=== PATIENT | female | born 1945 | race Caucasian/White ===

== ENCOUNTER 2021-02-14 09:38 | Observation (INO) ==
[2021-02-14] MEDS ORDERED: Aspirin 81 MG TAB.CHEW PO ONE (09:51)
[2021-02-14 10:18] LABS: White Blood Count 7.8 K/mcL (4.3-11.1)
[2021-02-14 10:19] LABS: Basophils % 0.3 %; Eosinophils # 0.1 K/mcL (0.0-0.6); Eosinophils % 1.3 %; Hematocrit 37.9 % (35.3-44.9); Hemoglobin 12.8 g/dL (11.5-15.4); Immature Granulocytes % 0.5 % (0-4); Lymphocytes # 1.4 K/mcL (0.6-4.6); Lymphocytes % 17.4 %; Mean Corpuscular HGB Conc 33.8 g/dL (31.6-35.5); Mean Corpuscular Hemoglobin 30.6 pg (28.0-33.3); Mean Corpuscular Volume 90.7 fL (83.0-100.0); Monocytes # 0.8 K/mcL (0.0-1.3); Monocytes % 10.7 %; Neutrophils # 5.4 K/mcL (1.6-8.9); Platelet Count 270 K/mcL (140-400); Red Blood Count 4.18 M/mcL (3.82-4.97); Red Cell Distribution Width 13.2 % (11.5-14.5); Segmented Neutrophils % 69.8 %
[2021-02-14 10:26] LABS: INR 4.1
[2021-02-14 10:30] LABS: D-Dimer < 215 ng/mLFEU (0-500)
[2021-02-14 10:37] LABS: BUN/Creatinine Ratio 18 (6-26); Blood Urea Nitrogen 15 mg/dL (8-23); Calcium 9.4 mg/dL (8.6-10.3); Carbon Dioxide 23 mEq/L (23-29); Chloride 101 mEq/L (98-107); Glucose 109 mg/dL (70-105); Osmolality,Calculated 281 (280-300); Potassium 3.6 mEq/L (3.5-5.1); Sodium 135 mEq/L (136-145); Troponin I < 0.03 ng/mL (< 0.04); eGFR For African Americans > 60 (> 60); eGFR For Non-African Americans > 60 (> 60)
[2021-02-14] MEDS ORDERED: Ondansetron 4 MG/2 ML VIAL IVP PRN (12:09)
[2021-02-14] MEDS ORDERED: Naloxone 0.4 MG/ML INJ IVP PRN (12:09)
[2021-02-14] MEDS ORDERED: Perflutren Lipid Microsphere 1.3 ML in 0.9 % Sodium Chloride 8.7 ML IVP PRN (14:52)
[2021-02-14] MEDS: Pantoprazole 40 MG VIAL IVP SCH (16:58)
[2021-02-14] MEDS ORDERED: Warfarin perPT PO PRN (18:00)
[2021-02-14] MEDS: Acetaminophen 325 MG TABLET PO PRN (19:23)
[2021-02-15 01:45] LABS: Basophils % 0.8 %; Eosinophils # 0.1 K/mcL (0.0-0.6); Eosinophils % 2.5 %; Hematocrit 35.1 % (35.3-44.9); Hemoglobin 11.9 g/dL (11.5-15.4); Immature Granulocytes % 0.2 % (0-4); Lymphocytes # 1.7 K/mcL (0.6-4.6); Lymphocytes % 35.3 %; Mean Corpuscular HGB Conc 33.9 g/dL (31.6-35.5); Mean Corpuscular Hemoglobin 30.8 pg (28.0-33.3); Mean Corpuscular Volume 90.9 fL (83.0-100.0); Monocytes # 0.6 K/mcL (0.0-1.3); Monocytes % 12.7 %; Neutrophils # 2.4 K/mcL (1.6-8.9); Platelet Count 265 K/mcL (140-400); Red Blood Count 3.86 M/mcL (3.82-4.97); Red Cell Distribution Width 13.1 % (11.5-14.5); Segmented Neutrophils % 48.5 %; White Blood Count 4.9 K/mcL (4.3-11.1)
[2021-02-15 01:59] LABS: INR 4.4; Prothrombin Time 48.5 Seconds (9.4-12.1)
[2021-02-15 02:07] LABS: BUN/Creatinine Ratio 19 (6-26); Blood Urea Nitrogen 15 mg/dL (8-23); Carbon Dioxide 24 mEq/L (23-29); Chloride 102 mEq/L (98-107); Glucose 105 mg/dL (70-105); Magnesium 1.8 mg/dL (1.6-2.6); Osmolality,Calculated 285 (280-300); Potassium 3.4 mEq/L (3.5-5.1); Sodium 137 mEq/L (136-145); eGFR For African Americans > 60 (> 60); eGFR For Non-African Americans > 60 (> 60)
[2021-02-15] MEDS: Acetaminophen 325 MG TABLET PO PRN (02:47)
[2021-02-15] MEDS ORDERED: Regadenoson 0.4 MG/5 ML SYRINGE IVP ONE (06:07)
[2021-02-15] MEDS: Pantoprazole 40 MG VIAL IVP SCH (08:25)
[2021-02-15 12:02] VITALS: BP 139/83; PULSE 90; TEMP 98.1; O2SAT 91
[2021-02-15] MEDS ORDERED: Loratadine 10 MG TABLET PO SCH (21:00)
== END 2021-02-15 14:19 | disposition home or self-care (01) ==
LOC: EMEROOARM 09:38 → 3BNU 09:38 → SUATTDRO 15:15 → 3BNU 15:51
PROVIDERS: ADMIT Pharmacist; ATTEND Registered Nurse

== ENCOUNTER 2021-04-15 12:15 | Inpatient (IN) ==
[2021-04-15 12:50] LABS: Basophils % 0.5 %; Eosinophils # 0.2 K/mcL (0.0-0.6); Eosinophils % 1.9 %; Hematocrit 37.9 % (35.3-44.9); Hemoglobin 12.5 g/dL (11.5-15.4); Immature Granulocytes % 0.3 % (0-4); Lymphocytes # 2.1 K/mcL (0.6-4.6); Lymphocytes % 26.2 %; Mean Corpuscular Hemoglobin 30.9 pg (28.0-33.3); Mean Corpuscular Volume 93.8 fL (83.0-100.0); Mean Platelet Volume 9.2 fL (9.4-12.4); Monocytes # 0.7 K/mcL (0.0-1.3); Platelet Count 318 K/mcL (140-400); Red Blood Count 4.04 M/mcL (3.82-4.97); Red Cell Distribution Width 13.2 % (11.5-14.5); Segmented Neutrophils % 62.1 %
[2021-04-15 12:56] LABS: INR 1.8; Prothrombin Time 19.7 Seconds (9.4-12.1)
[2021-04-15 13:21] LABS: BUN/Creatinine Ratio 26 (6-26); Blood Urea Nitrogen 22 mg/dL (8-23); Calcium 9.3 mg/dL (8.6-10.3); Carbon Dioxide 26 mEq/L (23-29); Chloride 100 mEq/L (98-107); Glucose 111 mg/dL (70-105); Lipase 106 Units/L (11-82); Osmolality,Calculated 286 (280-300); Potassium 3.4 mEq/L (3.5-5.1); Sodium 136 mEq/L (136-145); Troponin I < 0.03 ng/mL (< 0.04); eGFR For African Americans > 60 (> 60); eGFR For Non-African Americans > 60 (> 60)
[2021-04-15 13:57] LABS: Bacteria,Urine Few per hpf (None-Few); Bilirubin,Urine Negative (Negative); Blood,Urine Negative (Negative); Clarity,Urine Turbid (Clear); Color,Urine Yellow (Yellow); Glucose,Urine (UA) Normal (Normal); Hyaline Casts,Urine Few per lpf (None Seen); Ketones,Urine Negative (Negative); Leukocyte Esterase,Urine Large (Negative); Mucus,Urine Few per lpf (None-Few); Nitrite,Urine Positive (Negative); PH,Urine 6.5 pH Units (5.0-8.0); Protein,Urine Trace mg/dL (Neg-Trace); Renal Epithelial Cells,Urine Few per hpf (None-Few); Specific Gravity,Urine 1.021 (1.010-1.025); Squamous Epithelial Cell,Urine Moderate per hpf (None-Few); Transitional Epi Cells,Urine Few per hpf (None-Few); Urobilinogen,Urine Normal (Normal); WBC,Urine TNTC per hpf (0-3)
[2021-04-15] MEDS ORDERED: cefTRIAXone 1,000 MG in 0.9 % Sodium Chloride Mini Bag 100 ML IVPB ONE (16:05)
[2021-04-15] MEDS ORDERED: Aspirin 325 MG TABLET PO ONE (16:36)
[2021-04-15] MEDS ORDERED: Naloxone 0.4 MG/ML INJ IVP PRN (18:21)
[2021-04-15] MEDS ORDERED: *HR* Heparin 5,000 UNIT/ML VIAL IVP PRN ×2 (18:27)
[2021-04-15 19:19] LABS: Hemoglobin 11.8 g/dL (11.5-15.4); Mean Corpuscular HGB Conc 32.8 g/dL (31.6-35.5); Mean Corpuscular Hemoglobin 30.9 pg (28.0-33.3); Mean Corpuscular Volume 94.2 fL (83.0-100.0); Mean Platelet Volume 9.3 fL (9.4-12.4); Platelet Count 282 K/mcL (140-400); Red Blood Count 3.82 M/mcL (3.82-4.97); Red Cell Distribution Width 13.1 % (11.5-14.5); White Blood Count 6.4 K/mcL (4.3-11.1)
[2021-04-15 19:26] LABS: INR 1.8; Prothrombin Time 19.9 Seconds (9.4-12.1)
[2021-04-15 19:29] LABS: Heparin anti-factor XA UFH < 0.04 IU/mL (0.30-0.70)
[2021-04-15] MEDS: Heparin 25,000 UNIT/250 ML 25,000 UNIT/250 ML IV.SOLN IVC SCH (20:06)
[2021-04-15 22:36] LABS: Adenovirus F 40/41 PCR Not detected (Not detect); Astrovirus PCR Not detected (Not detect); C.difficile Toxin A/B Gene PCR Not detected (Not detect); Campylobacter by PCR Not detected (Not detect); Cryptosporidium by PCR Not detected (Not detect); Cyclospora cayetanensis PCR Not detected (Not detect); E. coli O157 by PCR Not detected (Not detect); Entamoeba histolytica PCR Not detected (Not detect); Enteroaggregative E.coli(EAEC) Not detected (Not detect); Enteropathogenic E.coli(EPEC) Not detected (Not detect); Enterotoxigenic E.coli (ETEC) Not detected (Not detect); Giardia lamblia PCR Not detected (Not detect); Norovirus GI/GII PCR Not detected (Not detect); Plesiomonas shigelloides PCR Not detected (Not detect); Rotavirus A PCR Not detected (Not detect); Salmonella PCR Not detected (Not detect); Sapovirus PCR Not detected (Not detect); Shig/EnteroinvasiveE coli EIEC Not detected (Not detect); Shigalike tox-prod E coli STEC Not detected (Not detect); Vibrio PCR Not detected (Not detect); Vibrio cholerae PCR Not detected (Not detect); Yersinia enterocolitica PCR Not detected (Not detect)
[2021-04-16 00:46] LABS: Basophils # 0.1 K/mcL (0.0-0.2); Basophils % 0.6 %; Eosinophils # 0.1 K/mcL (0.0-0.6); Eosinophils % 1.5 %; Hematocrit 34.1 % (35.3-44.9); Hemoglobin 11.7 g/dL (11.5-15.4); Immature Granulocytes % 0.3 % (0-4); Lymphocytes # 2.3 K/mcL (0.6-4.6); Lymphocytes % 28.7 %; Mean Corpuscular HGB Conc 34.3 g/dL (31.6-35.5); Mean Corpuscular Hemoglobin 32.1 pg (28.0-33.3); Mean Corpuscular Volume 93.4 fL (83.0-100.0); Mean Platelet Volume 9.4 fL (9.4-12.4); Monocytes # 0.7 K/mcL (0.0-1.3); Monocytes % 9.3 %; Neutrophils # 4.7 K/mcL (1.6-8.9); Platelet Count 292 K/mcL (140-400); Red Blood Count 3.65 M/mcL (3.82-4.97); Red Cell Distribution Width 13.1 % (11.5-14.5); Segmented Neutrophils % 59.6 %
[2021-04-16 00:59] LABS: BUN/Creatinine Ratio 23 (6-26); Blood Urea Nitrogen 18 mg/dL (8-23); Calcium 8.6 mg/dL (8.6-10.3); Carbon Dioxide 24 mEq/L (23-29); Chloride 105 mEq/L (98-107); Chol/HDL Ratio 4.6 (0-4.9); Cholesterol 248 mg/dL (< 200); Glucose 107 mg/dL (70-105); HDL Cholesterol 54 mg/dL (40-59); LDL Cholesterol,Calculated 158 mg/dL (< 100); Osmolality,Calculated 290 (280-300); Potassium 3.3 mEq/L (3.5-5.1); Sodium 139 mEq/L (136-145); Triglycerides 181 mg/dL (< 150); eGFR For African Americans > 60 (> 60); eGFR For Non-African Americans > 60 (> 60)
[2021-04-16] MEDS: Gabapentin 300 MG CAPSULE PO SCH ×3 (09:26→19:54)
[2021-04-16] MEDS ORDERED: Isovue-370 500 ML BOTTLE IVP ONE (13:17)
[2021-04-16] MEDS: Heparin 25,000 UNIT/250 ML 25,000 UNIT/250 ML IV.SOLN IVC SCH (23:09)
[2021-04-17] MEDS ORDERED: Ondansetron ODT 4 MG TAB.RAPDIS SL PRN (08:10)
[2021-04-17] MEDS: Acetaminophen 325 MG TABLET PO PRN (08:26)
[2021-04-17] MEDS: Gabapentin 300 MG CAPSULE PO SCH ×3 (08:26→21:31)
[2021-04-17] MEDS: Aspirin Enteric Coated 81 MG Tablet PO SCH (08:27)
[2021-04-17] MEDS: Acetaminophen/Butalbital/CaffeineTABLET PO PRN ×2 (11:29→18:14)
[2021-04-17] MEDS: Heparin 25,000 UNIT/250 ML 25,000 UNIT/250 ML IV.SOLN IVC SCH (21:32)
[2021-04-17] MEDS ORDERED: *HR* LORazepam 2 MG/ML VIAL IVP ONE (23:50)
[2021-04-18 02:40] LABS: Basophils # 0.1 K/mcL (0.0-0.2); Basophils % 0.8 %; Eosinophils # 0.1 K/mcL (0.0-0.6); Hematocrit 33.1 % (35.3-44.9); Immature Granulocytes % 0.2 % (0-4); Lymphocytes % 39.8 %; Mean Corpuscular HGB Conc 33.2 g/dL (31.6-35.5); Mean Corpuscular Hemoglobin 31.7 pg (28.0-33.3); Mean Corpuscular Volume 95.4 fL (83.0-100.0); Mean Platelet Volume 9.5 fL (9.4-12.4); Monocytes # 0.7 K/mcL (0.0-1.3); Monocytes % 10.8 %; Platelet Count 276 K/mcL (140-400); Red Blood Count 3.47 M/mcL (3.82-4.97); Red Cell Distribution Width 13.2 % (11.5-14.5); Segmented Neutrophils % 46.4 %; White Blood Count 6.4 K/mcL (4.3-11.1)
[2021-04-18 02:50] LABS: Lymphocytes # 2.6 K/mcL (0.6-4.6)
[2021-04-18 02:52] LABS: BUN/Creatinine Ratio 26 (6-26); Blood Urea Nitrogen 20 mg/dL (8-23); Calcium 8.7 mg/dL (8.6-10.3); Carbon Dioxide 24 mEq/L (23-29); Chloride 106 mEq/L (98-107); Glucose 103 mg/dL (70-105); Osmolality,Calculated 289 (280-300); Potassium 3.5 mEq/L (3.5-5.1); Sodium 138 mEq/L (136-145); eGFR For African Americans > 60 (> 60); eGFR For Non-African Americans > 60 (> 60)
[2021-04-18 03:14] LABS: Platelet Estimate Normal (Normal)
[2021-04-18] MEDS: Heparin 25,000 UNIT/250 ML 25,000 UNIT/250 ML IV.SOLN IVC SCH (06:46)
[2021-04-18] MEDS: Aspirin Enteric Coated 81 MG Tablet PO SCH (08:34)
[2021-04-18] MEDS: Gabapentin 300 MG CAPSULE PO SCH ×3 (08:34→21:10)
[2021-04-18] MEDS: *HR* LORazepam 2 MG/ML VIAL IVP PRN ×2 (11:20→21:11)
[2021-04-18] MEDS: Acetaminophen 325 MG TABLET PO PRN (11:20)
[2021-04-19 01:26] LABS: Basophils # 0.1 K/mcL (0.0-0.2); Basophils % 0.8 %; Eosinophils # 0.2 K/mcL (0.0-0.6); Eosinophils % 2.7 %; Hematocrit 34.3 % (35.3-44.9); Hemoglobin 11.3 g/dL (11.5-15.4); Immature Granulocytes % 0.5 % (0-4); Lymphocytes # 3.1 K/mcL (0.6-4.6); Lymphocytes % 48.3 %; Mean Corpuscular HGB Conc 32.9 g/dL (31.6-35.5); Mean Corpuscular Volume 94.2 fL (83.0-100.0); Mean Platelet Volume 9.4 fL (9.4-12.4); Monocytes # 0.7 K/mcL (0.0-1.3); Monocytes % 10.5 %; Neutrophils # 2.4 K/mcL (1.6-8.9); Platelet Count 274 K/mcL (140-400); Red Blood Count 3.64 M/mcL (3.82-4.97); Red Cell Distribution Width 13.1 % (11.5-14.5); Segmented Neutrophils % 37.2 %; White Blood Count 6.4 K/mcL (4.3-11.1)
[2021-04-19 01:36] LABS: BUN/Creatinine Ratio 24 (6-26); Blood Urea Nitrogen 15 mg/dL (8-23); Calcium 8.5 mg/dL (8.6-10.3); Carbon Dioxide 23 mEq/L (23-29); Chloride 107 mEq/L (98-107); Glucose 98 mg/dL (70-105); Osmolality,Calculated 287 (280-300); Potassium 3.6 mEq/L (3.5-5.1); Sodium 138 mEq/L (136-145); eGFR For African Americans > 60 (> 60); eGFR For Non-African Americans > 60 (> 60)
[2021-04-19] MEDS: Gabapentin 300 MG CAPSULE PO SCH ×3 (08:08→19:30)
[2021-04-19] MEDS: Aspirin Enteric Coated 81 MG Tablet PO SCH (08:08)
[2021-04-19] MEDS ORDERED: Nitroglycerin 0.4 MG TAB.SUBL SL PRN (13:37)
[2021-04-19] MEDS: Ranolazine 500 MG TAB.ER.12H PO SCH ×2 (15:15→19:29)
[2021-04-19] MEDS: Heparin 25,000 UNIT/250 ML 25,000 UNIT/250 ML IV.SOLN IVC SCH (16:05)
[2021-04-19] MEDS: *HR* LORazepam 2 MG/ML VIAL IVP PRN (21:32)
[2021-04-20 01:15] LABS: Basophils % 0.5 %; Eosinophils # 0.1 K/mcL (0.0-0.6); Eosinophils % 2.2 %; Hematocrit 33.5 % (35.3-44.9); Hemoglobin 11.2 g/dL (11.5-15.4); Immature Granulocytes % 0.3 % (0-4); Lymphocytes # 3.1 K/mcL (0.6-4.6); Lymphocytes % 48.7 %; Mean Corpuscular HGB Conc 33.4 g/dL (31.6-35.5); Mean Corpuscular Hemoglobin 31.4 pg (28.0-33.3); Mean Corpuscular Volume 93.8 fL (83.0-100.0); Mean Platelet Volume 9.6 fL (9.4-12.4); Monocytes # 0.6 K/mcL (0.0-1.3); Monocytes % 8.9 %; Neutrophils # 2.5 K/mcL (1.6-8.9); Platelet Count 268 K/mcL (140-400); Red Blood Count 3.57 M/mcL (3.82-4.97); Red Cell Distribution Width 13.2 % (11.5-14.5); Segmented Neutrophils % 39.4 %; White Blood Count 6.4 K/mcL (4.3-11.1)
[2021-04-20 01:29] LABS: BUN/Creatinine Ratio 23 (6-26); Blood Urea Nitrogen 17 mg/dL (8-23); Carbon Dioxide 24 mEq/L (23-29); Chloride 105 mEq/L (98-107); Glucose 95 mg/dL (70-105); Osmolality,Calculated 287 (280-300); Potassium 3.7 mEq/L (3.5-5.1); Sodium 138 mEq/L (136-145); eGFR For African Americans > 60 (> 60); eGFR For Non-African Americans > 60 (> 60)
[2021-04-20 07:34] VITALS: BP 109/70; PULSE 60; TEMP 98.1; O2SAT 93
[2021-04-20] MEDS: Aspirin Enteric Coated 81 MG Tablet PO SCH (08:49)
[2021-04-20] MEDS: Gabapentin 300 MG CAPSULE PO SCH (08:49)
[2021-04-20] MEDS: Ranolazine 500 MG TAB.ER.12H PO SCH (08:49)
[2021-04-20] MEDS: Acetaminophen/Butalbital/CaffeineTABLET PO PRN (08:56)
== END 2021-04-20 10:53 | disposition home or self-care (01) | DRG 300 ==
LOC: EMEROOARM 12:15 → 3BNU 12:15 → SUATTDRO 16:18 → 3BNU 17:40
PROVIDERS: ADMIT Pharmacist; ATTEND Internal Medicine

== ENCOUNTER 2021-07-11 05:58 | Observation (INO) ==
[2021-07-11 06:32] LABS: Basophils % 0.6 %; Eosinophils # 0.2 K/mcL (0.0-0.6); Eosinophils % 3.5 %; Hematocrit 36.7 % (35.3-44.9); Immature Granulocytes % 0.9 % (0-4); Lymphocytes # 2.2 K/mcL (0.6-4.6); Lymphocytes % 33.5 %; Mean Corpuscular HGB Conc 32.7 g/dL (31.6-35.5); Mean Corpuscular Hemoglobin 31.7 pg (28.0-33.3); Mean Corpuscular Volume 97.1 fL (83.0-100.0); Mean Platelet Volume 9.5 fL (9.4-12.4); Monocytes # 0.6 K/mcL (0.0-1.3); Monocytes % 9.8 %; Neutrophils # 3.4 K/mcL (1.6-8.9); Platelet Count 281 K/mcL (140-400); Red Blood Count 3.78 M/mcL (3.82-4.97); Red Cell Distribution Width 12.1 % (11.5-14.5); Segmented Neutrophils % 51.7 %; White Blood Count 6.5 K/mcL (4.3-11.1)
[2021-07-11 06:57] LABS: Alanine Aminotransferase 23 Units/L (7-52); Albumin 4.3 g/dL (3.5-5.7); Albumin/Globulin Ratio 1.8 (1.1-2.2); Alkaline Phosphatase 75 Units/L (34-104); Aspartate Amino Transferase 28 Units/L (13-39); BUN/Creatinine Ratio 24 (6-26); Bilirubin,Direct 0.1 mg/dL (0.0-0.2); Bilirubin,Indirect 0.3 mg/dL (0.0-1.0); Bilirubin,Total 0.4 mg/dL (0.3-1.0); Blood Urea Nitrogen 21 mg/dL (8-23); Calcium 9.4 mg/dL (8.6-10.3); Carbon Dioxide 23 mEq/L (23-29); Chloride 105 mEq/L (98-107); Globulin 2.4 g/dL (2.4-3.5); Glucose 119 mg/dL (70-105); Lipase 40 Units/L (11-82); Osmolality,Calculated 290 (280-300); Potassium 4.3 mEq/L (3.5-5.1); Sodium 138 mEq/L (136-145); Total Protein 6.7 g/dL (6.4-8.9); Troponin I < 0.03 ng/mL (< 0.04); eGFR For African Americans > 60 (> 60); eGFR For Non-African Americans > 60 (> 60)
[2021-07-11 07:07] LABS: Bacteria,Urine Few per hpf (None-Few); Bilirubin,Urine Negative (Negative); Blood,Urine Negative (Negative); Clarity,Urine Turbid (Clear); Color,Urine Yellow (Yellow); Glucose,Urine (UA) Normal (Normal); Ketones,Urine Negative (Negative); Leukocyte Esterase,Urine Moderate (Negative); Mucus,Urine Few per lpf (None-Few); Nitrite,Urine Positive (Negative); Protein,Urine Negative (Neg-Trace); RBC,Urine 0-3 per hpf (0-3); Specific Gravity,Urine 1.016 (1.010-1.025); Squamous Epithelial Cell,Urine Few per hpf (None-Few); Urobilinogen,Urine Normal (Normal); WBC,Urine 50-100 per hpf (0-3)
[2021-07-11] MEDS ORDERED: cefTRIAXone 1,000 MG in Water for inj. (sterile) 10 ML IVP ONE (07:11)
[2021-07-11] MEDS ORDERED: Isovue-370 500 ML BOTTLE IVP ONE (08:08)
[2021-07-11 08:31] LABS: Influenza A PCR Negative (Negative); Influenza B PCR Negative (Negative); Resp. Syncytial Virus PCR Negative (Negative)
[2021-07-11 09:05] LABS: SARS-CoV-2 by PCR (In House) Negative (Negative)
[2021-07-11] MEDS ORDERED: Ondansetron ODT 4 MG TAB.RAPDIS SL PRN (10:21)
[2021-07-11] MEDS ORDERED: Naloxone 0.4 MG/ML INJ IVP PRN (10:21)
[2021-07-11] MEDS ORDERED: Mag Hydrox/Al Hydrox/Simeth 30 ML UDC PO PRN (10:21)
[2021-07-11] MEDS ORDERED: *HR* OxyCODONE Immed Rel 5 MG TABLET PO PRN (10:21)
[2021-07-11] MEDS ORDERED: Morphine Sulfate 2 MG/ML SYRINGE IVP PRN (10:23)
[2021-07-11] MEDS ORDERED: Nitroglycerin 0.4 MG TAB.SUBL SL PRN (10:23)
[2021-07-11] MEDS ORDERED: Aspirin 325 MG TABLET PO ONE (10:23)
[2021-07-11] MEDS: Piperacillin/Tazobactam 3.375 GM in 0.9 % Sodium Chloride Mini Bag 100 ML IVPB SCH ×2 (11:21→20:08)
[2021-07-11] MEDS: Acetaminophen 325 MG TABLET PO PRN ×2 (11:21→20:09)
[2021-07-11] MEDS: Apixaban 5 MG TABLET PO SCH ×2 (16:12→20:10)
[2021-07-11] MEDS: Ranolazine 500 MG TAB.ER.12H PO SCH (20:08)
[2021-07-11] MEDS: Gabapentin 300 MG CAPSULE PO SCH (20:09)
[2021-07-11] MEDS: Melatonin 3 MG TABLET PO PRN (20:10)
[2021-07-11] MEDS ORDERED: Ranolazine 500 MG TAB.ER.12H PO SCH (21:00)
[2021-07-12 04:54] LABS: Hematocrit 38.2 % (35.3-44.9); Hemoglobin 12.1 g/dL (11.5-15.4); Mean Corpuscular HGB Conc 31.7 g/dL (31.6-35.5); Mean Corpuscular Hemoglobin 32.3 pg (28.0-33.3); Mean Corpuscular Volume 101.9 fL (83.0-100.0); Mean Platelet Volume 9.7 fL (9.4-12.4); Platelet Count 229 K/mcL (140-400); Red Blood Count 3.75 M/mcL (3.82-4.97); Red Cell Distribution Width 12.3 % (11.5-14.5); White Blood Count 6.5 K/mcL (4.3-11.1)
[2021-07-12 05:06] LABS: INR 1.5; Prothrombin Time 16.5 Seconds (9.4-12.1)
[2021-07-12 05:14] LABS: BUN/Creatinine Ratio 24 (6-26); Blood Urea Nitrogen 19 mg/dL (8-23); Carbon Dioxide 23 mEq/L (23-29); Chloride 104 mEq/L (98-107); Glucose 121 mg/dL (70-105); Osmolality,Calculated 286 (280-300); Potassium 3.5 mEq/L (3.5-5.1); Sodium 136 mEq/L (136-145); eGFR For African Americans > 60 (> 60); eGFR For Non-African Americans > 60 (> 60)
[2021-07-12] MEDS: Piperacillin/Tazobactam 3.375 GM in 0.9 % Sodium Chloride Mini Bag 100 ML IVPB SCH ×3 (05:22→20:29)
[2021-07-12] MEDS: Methylphenidate HCl 5 MG TABLET PO SCH (08:02)
[2021-07-12] MEDS: Aspirin Enteric Coated 81 MG Tablet PO SCH (08:02)
[2021-07-12] MEDS: Gabapentin 300 MG CAPSULE PO SCH ×4 (08:02→20:31)
[2021-07-12] MEDS: Ranolazine 500 MG TAB.ER.12H PO SCH ×2 (08:02→20:29)
[2021-07-12] MEDS: Apixaban 5 MG TABLET PO SCH ×2 (08:03→20:30)
[2021-07-12] MEDS: Loratadine 10 MG TABLET PO SCH (08:03)
[2021-07-12] MEDS: Cholecalciferol (D-3) 1,000 UNIT (25MCG) TABLET PO SCH (08:03)
[2021-07-12] MEDS: Methenamine Hippurate [Hiprex] 1 GM Tablet PO SCH (08:04)
[2021-07-12] MEDS ORDERED: cefTRIAXone 1,000 MG in 0.9 % Sodium Chloride 10 ML IVP SCH (09:00)
[2021-07-12] MEDS ORDERED: Isovue-370 500 ML BOTTLE IVP ONE (10:32)
[2021-07-12] MEDS: Acetaminophen 325 MG TABLET PO PRN ×2 (12:09→20:29)
[2021-07-12] MEDS ORDERED: Gadolinium Contrast Agent (WT Based) IV PRN (16:55)
[2021-07-12] MEDS: Melatonin 3 MG TABLET PO PRN (21:37)
[2021-07-13 02:58] LABS: Basophils % 0.6 %; Eosinophils # 0.2 K/mcL (0.0-0.6); Eosinophils % 2.9 %; Hematocrit 33.8 % (35.3-44.9); Hemoglobin 11.5 g/dL (11.5-15.4); Immature Granulocytes % 0.1 % (0-4); Lymphocytes # 1.8 K/mcL (0.6-4.6); Lymphocytes % 24.8 %; Mean Corpuscular Hemoglobin 32.8 pg (28.0-33.3); Mean Corpuscular Volume 96.3 fL (83.0-100.0); Mean Platelet Volume 9.8 fL (9.4-12.4); Monocytes # 0.7 K/mcL (0.0-1.3); Monocytes % 10.2 %; Neutrophils # 4.4 K/mcL (1.6-8.9); Platelet Count 258 K/mcL (140-400); Red Blood Count 3.51 M/mcL (3.82-4.97); Red Cell Distribution Width 12.2 % (11.5-14.5); Segmented Neutrophils % 61.4 %; White Blood Count 7.2 K/mcL (4.3-11.1)
[2021-07-13 03:17] LABS: Alanine Aminotransferase 18 Units/L (7-52); Albumin 3.8 g/dL (3.5-5.7); Albumin/Globulin Ratio 1.5 (1.1-2.2); Alkaline Phosphatase 66 Units/L (34-104); Aspartate Amino Transferase 17 Units/L (13-39); BUN/Creatinine Ratio 25 (6-26); Bilirubin,Total 0.4 mg/dL (0.3-1.0); Blood Urea Nitrogen 19 mg/dL (8-23); Calcium 8.8 mg/dL (8.6-10.3); Carbon Dioxide 24 mEq/L (23-29); Chloride 105 mEq/L (98-107); Globulin 2.6 g/dL (2.4-3.5); Glucose 115 mg/dL (70-105); Osmolality,Calculated 289 (280-300); Potassium 3.6 mEq/L (3.5-5.1); Sodium 138 mEq/L (136-145); Total Protein 6.4 g/dL (6.4-8.9); eGFR For African Americans > 60 (> 60); eGFR For Non-African Americans > 60 (> 60)
[2021-07-13] MEDS: Piperacillin/Tazobactam 3.375 GM in 0.9 % Sodium Chloride Mini Bag 100 ML IVPB SCH (04:04)
[2021-07-13] MEDS: Aspirin Enteric Coated 81 MG Tablet PO SCH (08:41)
[2021-07-13] MEDS: Cholecalciferol (D-3) 1,000 UNIT (25MCG) TABLET PO SCH (08:41)
[2021-07-13] MEDS: Loratadine 10 MG TABLET PO SCH (08:42)
[2021-07-13] MEDS: Apixaban 5 MG TABLET PO SCH (08:42)
[2021-07-13] MEDS: Gabapentin 300 MG CAPSULE PO SCH (08:42)
[2021-07-13] MEDS: Ranolazine 500 MG TAB.ER.12H PO SCH (08:42)
[2021-07-13] MEDS: Methenamine Hippurate [Hiprex] 1 GM Tablet PO SCH (08:43)
[2021-07-13] MEDS: Methylphenidate HCl 5 MG TABLET PO SCH (08:46)
[2021-07-13] MEDS ORDERED: cefTRIAXone 1,000 MG in 0.9 % Sodium Chloride 10 ML IVPB SCH (09:00)
[2021-07-13] MEDS ORDERED: GADOBUTROL 30 MMOL/30 ML VIAL IVP ONE (12:35)
[2021-07-13 15:06] VITALS: BP 148/91; PULSE 91; TEMP 97.8; O2SAT 93
== END 2021-07-13 17:46 | disposition home or self-care (01) ==
LOC: 3BNU 05:58 → EMEROOARM 05:58 → 3BNU 11:20
PROVIDERS: ADMIT Family Medicine; ATTEND Family Medicine

== ENCOUNTER 2021-11-21 19:59 | Observation (INO) ==
[2021-11-21] MEDS ORDERED: Iopamidol - 370 500 ML MLS IVP ONE (20:26)
[2021-11-21 21:51] LABS: Bilirubin,Urine Negative (Negative); Blood,Urine Negative (Negative); Clarity,Urine Clear (Clear); Color,Urine Yellow (Yellow); Glucose,Urine (UA) Normal (Normal); Ketones,Urine Negative (Negative); Leukocyte Esterase,Urine Small (Negative); Mucus,Urine Few per lpf (None-Few); Nitrite,Urine Negative (Negative); Protein,Urine Negative (Neg-Trace); Specific Gravity,Urine 1.028 (1.010-1.025); Squamous Epithelial Cell,Urine Few per hpf (None-Few); Urobilinogen,Urine Normal (Normal)
[2021-11-21 21:51] LABS: Basophils % 0.3 %; Eosinophils # 0.3 K/mcL (0.0-0.6); Eosinophils % 4.1 %; Hematocrit 34.2 % (35.3-44.9); Immature Granulocytes % 0.2 % (0-4); Lymphocytes # 2.4 K/mcL (0.6-4.6); Lymphocytes % 40.2 %; Mean Corpuscular HGB Conc 32.2 g/dL (31.6-35.5); Mean Corpuscular Hemoglobin 33.1 pg (28.0-33.3); Mean Platelet Volume 9.7 fL (9.4-12.4); Monocytes # 0.7 K/mcL (0.0-1.3); Monocytes % 10.8 %; Neutrophils # 2.7 K/mcL (1.6-8.9); Platelet Count 254 K/mcL (140-400); Red Blood Count 3.32 M/mcL (3.82-4.97); Red Cell Distribution Width 11.9 % (11.5-14.5); Segmented Neutrophils % 44.4 %
[2021-11-21 21:54] LABS: Alanine Aminotransferase 16 Units/L (7-52); Albumin 4.3 g/dL (3.5-5.7); Alkaline Phosphatase 57 Units/L (34-104); Aspartate Amino Transferase 19 Units/L (13-39); BUN/Creatinine Ratio 21 (6-26); Bilirubin,Total 0.3 mg/dL (0.3-1.0); Blood Urea Nitrogen 22 mg/dL (8-23); Calcium 8.5 mg/dL (8.6-10.3); Carbon Dioxide 28 mEq/L (23-29); Chloride 102 mEq/L (98-107); Globulin 2.2 g/dL (2.4-3.5); Glucose 113 mg/dL (70-105); Magnesium 2.1 mg/dL (1.6-2.6); Osmolality,Calculated 288 (280-300); Potassium 4.1 mEq/L (3.5-5.1); Sodium 137 mEq/L (136-145); Total Protein 6.5 g/dL (6.4-8.9); eGFR For African Americans > 60 (> 60); eGFR For Non-African Americans 51 (> 60)
[2021-11-21] MEDS ORDERED: Ibuprofen 400 MG TABLET PO ONE (23:04)
[2021-11-22] MEDS ORDERED: Perflutren Lipid Microsphere 1.3 ML in 0.9 % Sodium Chloride 8.7 ML IVP PRN (00:28)
[2021-11-22] MEDS ORDERED: Melatonin 3 MG TABLET PO PRN (00:35)
[2021-11-22] MEDS ORDERED: Naloxone 0.4 MG/ML INJ IVP PRN (00:35)
[2021-11-22] MEDS ORDERED: Ondansetron ODT 4 MG TAB.RAPDIS SL PRN (00:35)
[2021-11-22 05:31] LABS: Alanine Aminotransferase 14 Units/L (7-52); Alkaline Phosphatase 51 Units/L (34-104); Aspartate Amino Transferase 16 Units/L (13-39); BUN/Creatinine Ratio 22 (6-26); Bilirubin,Total 0.3 mg/dL (0.3-1.0); Blood Urea Nitrogen 20 mg/dL (8-23); Calcium 8.5 mg/dL (8.6-10.3); Carbon Dioxide 26 mEq/L (23-29); Chloride 106 mEq/L (98-107); Chol/HDL Ratio 2.3 (0-4.9); Cholesterol 156 mg/dL (< 200); Glucose 94 mg/dL (70-105); HDL Cholesterol 68 mg/dL (40-59); LDL Cholesterol,Calculated 69 mg/dL (< 100); Osmolality,Calculated 290 (280-300); Potassium 4.2 mEq/L (3.5-5.1); Sodium 139 mEq/L (136-145); Triglycerides 95 mg/dL (< 150); Troponin I < 0.03 ng/mL (< 0.04); eGFR For African Americans > 60 (> 60); eGFR For Non-African Americans > 60 (> 60)
[2021-11-22 05:32] LABS: INR 1.1; Prothrombin Time 12.8 Seconds (9.4-12.1)
[2021-11-22 08:36] LABS: Hematocrit 35.3 % (35.3-44.9); Hemoglobin 11.5 g/dL (11.5-15.4); Mean Corpuscular HGB Conc 32.6 g/dL (31.6-35.5); Mean Corpuscular Hemoglobin 33.4 pg (28.0-33.3); Mean Corpuscular Volume 102.6 fL (83.0-100.0); Mean Platelet Volume 9.4 fL (9.4-12.4); Platelet Count 224 K/mcL (140-400); Red Blood Count 3.44 M/mcL (3.82-4.97); Red Cell Distribution Width 11.9 % (11.5-14.5)
[2021-11-22] MEDS ORDERED: Aspirin Enteric Coated 81 MG Tablet PO SCH (09:00)
[2021-11-22] MEDS ORDERED: Apixaban 5 MG TABLET PO SCH (09:00)
[2021-11-22 09:30] LABS: Estimated Average Glucose 100 mg/dl; Hemoglobin A1C 5.1 %
[2021-11-22 09:31] LABS: Folate > 22.3 ng/mL (3.0-16.0); Vitamin B12 724 pg/mL (250-1100)
[2021-11-22] MEDS ORDERED: Ibuprofen 400 MG TABLET PO ONE (10:09)
[2021-11-22 14:09] VITALS: BP 151/81; PULSE 71; TEMP 97.7; O2SAT 98
[2021-11-22] MEDS ORDERED: Ketorolac 30 MG/ML VIAL IVP ONE (14:29)
[2021-11-22] MEDS ORDERED: Prochlorperazine 10 MG/2 ML VIAL IVP SCH (14:30)
[2021-11-22] MEDS ORDERED: Acetaminophen/Butalbital/CaffeineTABLET PO PRN (16:49)
[2021-11-22] MEDS ORDERED: Ranolazine 500 MG TAB.ER.12H PO SCH (21:00)
[2021-11-22] MEDS ORDERED: Gabapentin 300 MG CAPSULE PO SCH (21:00)
[2021-11-23] MEDS ORDERED: Gabapentin 300 MG CAPSULE PO SCH ×2 (09:00→12:00)
== END 2021-11-22 18:44 | disposition home or self-care (01) ==
LOC: 3BNU 19:59 → EMEROOARM 19:59 → SUATTDRO 11-22 00:51 → 3BNU 11-22 01:20
PROVIDERS: ADMIT Internal Medicine; ATTEND Registered Nurse

== ENCOUNTER 2022-01-12 13:30 | Observation (INO) ==
[2022-01-12] MEDS ORDERED: Iopamidol - 370 500 ML MLS IVP ONE (13:41)
[2022-01-12] MEDS ORDERED: 0.9 % Sodium Chloride 1,000 ML IVC ONE (13:41)
[2022-01-12 13:57] LABS: Hematocrit 36.4 % (35.3-44.9); Mean Corpuscular Hemoglobin 32.8 pg (28.0-33.3); Mean Corpuscular Volume 99.5 fL (83.0-100.0); Mean Platelet Volume 9.3 fL (9.4-12.4); Platelet Count 244 K/mcL (140-400); Red Blood Count 3.66 M/mcL (3.82-4.97); Red Cell Distribution Width 11.5 % (11.5-14.5); White Blood Count 5.3 K/mcL (4.3-11.1)
[2022-01-12 14:05] LABS: INR 1.5; Prothrombin Time 16.2 Seconds (9.4-12.1)
[2022-01-12 14:08] LABS: Activated Partial Thrombo Time 33.6 Seconds (26.0-36.0)
[2022-01-12 14:18] LABS: BUN/Creatinine Ratio 27 (6-26); Blood Urea Nitrogen 26 mg/dL (8-23); Calcium 8.8 mg/dL (8.6-10.3); Carbon Dioxide 27 mEq/L (23-29); Chloride 104 mEq/L (98-107); Ethanol < 10 mg/dL (Less than 10); Glucose 134 mg/dL (70-105); Osmolality,Calculated 291 (280-300); Potassium 3.9 mEq/L (3.5-5.1); Sodium 137 mEq/L (136-145); Troponin I < 0.03 ng/mL (< 0.04)
[2022-01-12] MEDS ORDERED: Aspirin 325 MG TABLET PO ONE (16:09)
[2022-01-12 16:45] LABS: Bacteria,Urine Few per hpf (None-Few); Bilirubin,Urine Negative (Negative); Blood,Urine Negative (Negative); Clarity,Urine Clear (Clear); Color,Urine Yellow (Yellow); Glucose,Urine (UA) Normal (Normal); Ketones,Urine Negative (Negative); Leukocyte Esterase,Urine Small (Negative); Mucus,Urine Few per lpf (None-Few); Nitrite,Urine Positive (Negative); PH,Urine 6.5 pH Units (5.0-8.0); Protein,Urine Negative (Neg-Trace); RBC,Urine 0-3 per hpf (0-3); Specific Gravity,Urine 1.022 (1.010-1.025); Squamous Epithelial Cell,Urine Few per hpf (None-Few); Urobilinogen,Urine Normal (Normal)
[2022-01-12] MEDS ORDERED: Melatonin 3 MG TABLET PO PRN (16:47)
[2022-01-12] MEDS ORDERED: Naloxone 0.4 MG/ML INJ IVP PRN (16:47)
[2022-01-12 17:24] LABS: Chol/HDL Ratio 2.2 (0-4.9); Cholesterol 143 mg/dL (< 200); HDL Cholesterol 65 mg/dL (40-59); LDL Cholesterol,Calculated 48 mg/dL (< 100); Triglycerides 150 mg/dL (< 150)
[2022-01-12] MEDS ORDERED: cefTRIAXone 1,000 MG in 0.9 % Sodium Chloride 10 ML IVP ONE (18:10)
[2022-01-12] MEDS ORDERED: Nitroglycerin 0.4 MG TAB.SUBL SL PRN (21:18)
[2022-01-12] MEDS ORDERED: Ondansetron ODT 4 MG TAB.RAPDIS PO PRN (21:18)
[2022-01-12] MEDS ORDERED: Acetaminophen/Butalbital/CaffeineTABLET PO PRN (21:43)
[2022-01-12] MEDS ORDERED: Budesonide/Formoterol 80/4.5 1 PUFF INH IH PRN (22:12)
[2022-01-12] MEDS: Apixaban 5 MG TABLET PO SCH (22:26)
[2022-01-13 05:25] LABS: Hematocrit 35.2 % (35.3-44.9); Hemoglobin 11.9 g/dL (11.5-15.4); Mean Corpuscular HGB Conc 33.8 g/dL (31.6-35.5); Mean Corpuscular Hemoglobin 32.9 pg (28.0-33.3); Mean Corpuscular Volume 97.2 fL (83.0-100.0); Mean Platelet Volume 9.6 fL (9.4-12.4); Platelet Count 249 K/mcL (140-400); Red Blood Count 3.62 M/mcL (3.82-4.97); Red Cell Distribution Width 11.5 % (11.5-14.5); White Blood Count 6.8 K/mcL (4.3-11.1)
[2022-01-13 05:26] LABS: Estimated Average Glucose 117 mg/dl; Hemoglobin A1C 5.7 %
[2022-01-13 05:40] LABS: Calcium 8.6 mg/dL (8.6-10.3); Potassium 3.7 mEq/L (3.5-5.1)
[2022-01-13] MEDS: Apixaban 5 MG TABLET PO SCH (07:56)
[2022-01-13] MEDS ORDERED: Cyanocobalamin (B-12) 1,000 MCG TABLET PO SCH (09:00)
[2022-01-13] MEDS ORDERED: Loratadine 10 MG TABLET PO SCH (09:00)
[2022-01-13] MEDS ORDERED: Cholecalciferol (D-3) 1,000 UNIT (25MCG) TABLET PO SCH (09:00)
[2022-01-13] MEDS ORDERED: Methenamine Hippurate 1 GM PO SCH (09:00)
[2022-01-13] MEDS ORDERED: Aspirin Enteric Coated 81 MG Tablet PO SCH (09:00)
[2022-01-13] MEDS ORDERED: Ranolazine 500 MG TAB.ER.12H PO SCH (09:00)
[2022-01-13] MEDS ORDERED: Gabapentin 300 MG CAPSULE PO SCH ×3 (09:00→21:00)
[2022-01-13] MEDS ORDERED: Magnesium Oxide 400 MG TABLET PO SCH (09:00)
[2022-01-13 10:25] VITALS: TEMP 97.8; O2SAT 96
[2022-01-13 14:03] VITALS: BP 117/73; PULSE 58
== END 2022-01-13 15:49 | disposition home or self-care (01) ==
LOC: 3BNU 13:30 → EMEROOARM 13:30 → SUATTDRO 17:30 → 3BNU 18:37
PROVIDERS: ADMIT Internal Medicine; ATTEND Internal Medicine